=== PATIENT | female | born 1985 | race Caucasian/White ===

== ENCOUNTER 2022-08-02 01:05 | Day surgery (SDC) | payer OTHER, SELFPAY ==
[2022-07-31 09:20] VITALS: BMI 36.2
--- NOTE | 2022-07-31 09:26 | PC.NURSE ---
Report to the Outpatient Waiting Room, entrance under the green pavilion located off [facility], at time 1000 on date 08/02/22. OR Time: 1200. Time changes happen often and if your time is changed the preop area will call you the afternoon before. - You and your visitor will be asked to self-screen and do not enter if you have any COVID symptoms. - Only one visitor and NO children visitors are allowed at this time. - The patient visitor is requested to leave or wait in car when not with patient due to restrictions. - A mask is required within the hospital. Patients may have clear liquids (water, carbonated beverages, clear teas, apple juice) until 3 hours prior to surgery with a maximum of 20 ounces. - No food from midnight until time of surgery Take the following medications with a SIP of water the morning of surgery: LEXAPRO Medications to discontinue per physician: N/A Date to take last dose: N/A Please no make-up, nail setswana, hairspray, perfume, deodorant, or body powder the day of surgery. No jewelry (including any body piercings) or valuables the day of surgery, leave them at home. Please take a shower or bath the night before, or the morning of, surgery with an antibacterial soap. Wear comfortable, loose fitting clothing. - Jewelry must be removed prior to entering the operating room. Rings and piercings that are not removed may be cut off. - The hospital will not accept responsibility for valuables. - Please leave all valuables, including medications, at home the day of surgery. If you are going home after surgery, a licensed lyft driver must drive you home. - NO public transportation without another adult. - We recommend that an adult stay with you for 24 hours following discharge. - We also recommend that you do not drive, make important decision, drink alcoholic beverages, or take any drugs that were not prescribed by your health care provider for at least 24 hours after your discharge time. Follow any additional instructions given to you from your surgeon. If you or anyone in your household have experienced Covid symptoms in the past week, please notify your surgeon or the nurse liaison at the phone number below for possible testing. Telephone instructions given to PT - BARB GOVEA and asked if any additional questions and then verbalized understanding. Patient advised to call surgeon office or pre surgery nurse liaison [phone] if any additional questions.
[2022-08-02 11:54] VITALS: BP 131/68; PULSE 77; RESP 16; TEMP 36.6; O2SAT 99
--- NOTE | 2022-08-02 12:16 | PM.IMHP ---
H&P: HPI History of Present Illness Date/Time: 08/02/22 12:16 Chief Complaint: Miscarriage Narrative: 37 y/o with LMP 05/30/22, putting her at 9w2d today. She had an ultrasound exam on 07/30/22. A victor IUP with CRL only c/w 7w3d, with no cardiac activity. Review of Systems Review of Systems: All systems reviewed & are unremarkable except as noted in HPI and below PMFSH Past Medical History Medical History Anxiety and depression BMI 38.0-38.9,adult Morbid obesity Family History Family History Other Cerebrovascular accident Diabetes mellitus Family history of coronary artery disease Family history of lymphoma Family history of malignant neoplasm of urinary bladder Hypertension Social History Social History Years smoked: 6 Smoking status: Former smoker Tobacco type: cigarettes Smoking end date: 10/27/11 Alcohol intake: never Substance use: never Substance use type: does not use Living arrangements: with family Spiritual care concerns: No Meds Home Medications and Allergies Home Medications Medication Instructions Recorded Confirmed Type escitalopram oxalate 20 mg tablet 20 mg PO DAILY #90 tabs 05/22/22 07/31/22 Rx (Lexapro) trazodone 50 mg tablet See Rx Instructions .Route 06/27/22 07/31/22 Rx .COMPLEX #90 tabs Allergies Allergy/AdvReac Type Severity Reaction Status Date / Time shellfish derived Allergy Severe Anaphylactic Verified 08/02/22 12:21 Shock Iodinated Contrast Media Allergy Unknown Swelling Verified 08/02/22 12:21 White Fish Allergy Intermediate Dyspnea / Uncoded 08/02/22 12:21 SOB Exam Const: Orientation/consciousness: patient oriented x3 Other: Well-developed, well-nourished female in no acute distress. Neck: Thyroid: thyroid normal Lymphatic: no lymphadenopathy noted (in neck, axilla or inguinal nodes) Resp: Effort & Inspection: normal respiratory effort Auscultation: clear to auscultation bilaterally Cardio: Rate: regular rate Rhythm: regular rhythm Heart sounds: S1 normal heart sound present and S2 normal heart sound present GI: Other: ABD: Soft, nontender, nondistended. No guarding or rebound tenderness. No hepatosplenomegaly. : General: Yes no CVA tenderness Other: External genitalia: normal female hair distribution, without lesion. Urethral meatus: no lesion, non prolapsed. Bladder: no mass, nontender Vagina: well-estrogenized, without lesion or discharge. No cystocele or rectocele. Cervix: no lesion or discharge. Uterus: small, anteverted, freely mobile, nontender Adnexa: no mass or tenderness. Anus/perineum: no lesions, nontender Back/Spine/Pelvis: Back: no CVA tenderness Skin: General skin exam: normal color and no rashes or lesions noted Neuro: General: patient oriented x3 Extrem: Other: Extremities: nontender with no edema Psych: Mental Status: mental status grossly normal Affect: normal affect Assessment and Plan Assessment and plan (1) Spontaneous : Code(s): O03.9 - Complete or unspecified spontaneous without complication Status: Acute Assessment and Plan: A: SAB. P: Offered expectant management vs. dilation and suction curettage. She desires the latter. She understands risks of surgery to include risks of anesthesia, risks of pain, infection, bleeding, blood products, thromboembolic phenomena and damage to adjacent structures such as bowel, bladder, ureters, blood vessels and nerves. She understands all these risks and elects to proceed with surgery.
[2022-08-02] MEDS: LACTATED RINGERS 1,000 ML 30 ML IV CONT (12:24)
[2022-08-02] MEDS: ACETAMINOPHEN 500 MG TABLET 1000 MG PO (12:25)
--- NOTE | 2022-08-02 12:32 | SUR.PREOP ---
BECAUSE WE CARE PAMPHLETS GIVEN TO PT.
--- NOTE | 2022-08-02 13:11 | P.PNAN_ITS ---
Anes - Initial Pre Proc Eval Procedure: Operation Date: 08/02/22 13:30 Proposed Procedures p Suction Dilation and Curettage - Chris Mcpherson MD Date/Time: 08/02/22 13:11 Surgeon: Chris Mcpherson MD Pre Op Diagnosis: Missed Ab Patient Data Age: 37 Gender: F Height: 1.63 m Weight: 98 kg Last Vital Signs Temp 36.6 C 08/02/22 11:54 Pulse 77 08/02/22 11:54 Resp 16 08/02/22 11:54 BP 131/68 08/02/22 11:54 Pulse Ox 99 08/02/22 11:54 O2 Del Method Room Air 08/02/22 11:54 Allergies Allergy/AdvReac Type Severity Reaction Status Date / Time shellfish derived Allergy Severe Anaphylactic Verified 08/02/22 12:21 Shock Iodinated Contrast Media Allergy Unknown Swelling Verified 08/02/22 12:21 White Fish Allergy Intermediate Dyspnea / Uncoded 08/02/22 12:21 SOB Home Medications Medication Instructions Recorded Confirmed Type escitalopram oxalate 20 mg tablet 20 mg PO DAILY #90 tabs 05/22/22 08/02/22 Rx (Lexapro) trazodone 50 mg tablet See Rx Instructions .Route 06/27/22 08/02/22 Rx .COMPLEX #90 tabs Patient hx anesthesia problems: none Family hx anesthesia problems: none Results Review: All pre-operative results and documents have been reviewed as part of the pre- operative evaluation. [facility] Past Medical History Medical History Anxiety and depression BMI 38.0-38.9,adult Morbid obesity Family History Family History Other Cerebrovascular accident Diabetes mellitus Family history of coronary artery disease Family history of lymphoma Family history of malignant neoplasm of urinary bladder Hypertension Social History Social History Years smoked: 6 Smoking status: Former smoker Tobacco type: cigarettes Smoking end date: 10/27/11 Alcohol intake: never Substance use: never Substance use type: does not use Living arrangements: with family Spiritual care concerns: No Anes - Eval Final PreProcedure Day of Procedure 08/02/22 13:11 Patient weight: obese Heart: regular rate and rhythm Lungs: clear to auscultation Airway: Mallampati scale class II Neurological: alert and oriented Last oral intake: >/= 8 hours ASA classification: II Emergent: no Anesthetic plan: proceed Anesthesia type and monitoring: general GIVS and standard monitoring Results Review: All pre-operative results and documents have been reviewed as part of the pre- operative evaluation. Informed Consent: The patient's anesthetic plan and its attendant risks and benefits were discussed with the patient/family/POA. Questions were solicited and answers provided to the satisfaction of the patient/family/POA.
--- NOTE | 2022-08-02 13:53 | WPDHPUPDATE1 ---
History and Physical Update Update Date/Time: 08/02/22 13:53 History and Physical has been reviewed, including an updated exam of the patient. There are NO changes in the patient's condition. Risks, benefits, and alternatives have been discussed and questions answered. Patient agrees to proceed with procedure.
[2022-08-02] MEDS: KETOROLAC 30 MG/ML VIAL (*BKC) IV PUSH (14:03)
[2022-08-02] MEDS: LIDOCAINE HCL 1% LOCAL INJ 20 ML VIAL 10 ML INFILTRATE (14:05)
--- NOTE | 2022-08-02 14:22 | P.OP_ITS ---
Procedure Note - Detailed Date of Procedure 08/02/22 Pre-op Diagnosis Missed Ab Post-op Diagnosis Same Procedure Performed Dilation and suction curettage Surgeon Chris Mcpherson MD Anesthesia MAC and Local (1% lidocaine paracervical block) Findings POC noted Description of Procedure The patient was taken to the operating room where she was prepared and draped in the usual sterile fashion in the dorsal lithotomy position. The bladder was drained with a red rubber catheter. A sterile speculum was placed into the vagina. The anterior lip of the cervix was grasped with a single-tooth tenaculum. Ten mL of 1% lidocaine was administered in a paracervical block. The cervix was gently dilated using Hegar dilators until an 8mm dilator could be passed. The 8mm curved tip suction curette was advanced. Suction curettage was performed and products of conception were aspirated. Sharp curettage was then performed until a good uterine cry was noted. A final pass with the suction curette was made. The tenaculum was removed. Hemostasis was excellent. Spo nge, lap, needle and instrument counts were correct. The patient was taken to the recovery room in stable condition. I was present and scrubbed for the entire procedure. Implants None Estimated Blood Loss 50 Drains No Packing No Pathology Yes (Endometrial curettings) Complications None Condition Stable Disposition PACU
[2022-08-02 14:24] VITALS: BP 113/66; PULSE 81; RESP 14; O2SAT 97
[2022-08-02 15:00] VITALS: BP 122/79; PULSE 65; RESP 14; O2SAT 100
[2022-08-02] MEDS: RHO(D) IMMUNE GLOBULIN 300 MCG/2 ML SYRINGE IM (15:20)
== END 2022-08-02 15:45 | disposition home or self-care (01) ==
PROVIDERS: PCP Family Medicine; Visit Provider Obstetrics & Gynecology
PROC: (CPT 59820; principal; 2022-08-02 13:30)
DX: O03.9 Complete or unspecified spontaneous abortion without complication (principal); Z87.891 Personal history of nicotine dependence
CPT/HCPCS: 59820; 36415; 85461; 88264; 88305; 90384; A9270; J1100; J1885; J2250; J2405; J2704; J2790; J3010; J7120

== ENCOUNTER → 2023-01-02 10:15 | Outpatient (CLI) | payer OTHER, SELFPAY ==
--- NOTE | ~2023-01-02 | US_ITS ---
Abdominal Sonogram: Real-time sonographic imaging of the abdomen was performed. Clinical History: Abdominal pain Findings: The liver appears normal with no evidence of mass lesion or bile duct dilatation. Main por bronson vein demonstrates normal direction of flow. The spleen is normal in size without evidence of foca l lesion. The gallbladder is well distended, and appears normal with no evidence of gallstone or wal l thickening. The common bile duct measures 4 mm. The visualized pancreas, aorta, and IVC are unrema rkable. The right kidney measures 11.3 cm in length and the left kidney measures 11.9 cm. There is no hydronephrosis or renal calculus. Impression: Unremarkable abdominal ultrasound. Reviewed, dictated and finalized at location . SS CLERK Impression: Unremarkable abdominal ultrasound.
== END ==
PROVIDERS: PCP Family Medicine; Visit Provider Nurse Practitioner Family
DX: R10.9 Unspecified abdominal pain (principal); R19.8 Other specified symptoms and signs involving the digestive system and abdomen
CPT/HCPCS: 76700

== ENCOUNTER → 2023-02-10 13:32 | Outpatient (CLI) | payer OTHER, SELFPAY ==
--- NOTE | ~2023-02-10 | CT_ITS ---
EXAMINATION: CT abdomen pelvis w con DATE: 02/10/2023 13:53 INDICATION: Left upper quadrant pain TECHNIQUE: Computed tomography (CT) of the chest was performed with 100 cc Omnipaque 350 intravenous contrast. The dose-length product was 947.41 mGy-cm. Automated exposure control and iterative reconst ruction technique were employed. COMPARISON: None FINDINGS: Lung bases are unremarkable. Heart size normal. No significant pleural or pericardial effus ion. No significant vascular abnormality. No lymphadenopathy. The liver, spleen, pancreas, adrenal gl ands are unremarkable. Right kidney is unremarkable. There are nonobstructing left renal stones measu ring 4 mm or less. No definite ureteral stones or hydronephrosis. There are pelvic phleboliths. There are follicular changes of the right ovary with trace free fluid in the pelvis. Small fat-containing umbilical hernia. Normal appendix. No significant bone or joint abnormality. IMPRESSION: 1. No acute abdominal abnormality. 2: Nonobstructing left nephrolithiasis. Reviewed, dictated and finalized at location A.
== END ==
PROVIDERS: PCP Family Medicine; Visit Provider Nurse Practitioner
DX: N20.0 Calculus of kidney (principal); R19.8 Other specified symptoms and signs involving the digestive system and abdomen; Z68.35 Body mass index [BMI] 35.0-35.9, adult
CPT/HCPCS: 74177; Q9967

== ENCOUNTER 2023-03-21 03:31 | Day surgery (SDC) | payer OTHER, SELFPAY ==
[2023-03-06 14:20] VITALS: BMI 37.8
--- NOTE | 2023-03-21 07:26 | PM.HPGS ---
History of Present Illness History of Present Illness Consent: Risks, benefits, and alternatives have been discussed and questions answered. Patient agrees to proceed with procedure. Chief complaint: symptoms and signs involving the digestive system Narrative: Anum Norris is a 38 year old female Who ?reports alternating bowel habits between constipation and diarrhea were she will not have a bowel movement for 3-4 days and then she can have up to 3-4 loose bowel movements in 1 day. there is a family history of Crohn's disease. She also has had some abdominal pains, Primarily in the left upper quadrant, 45 minutes after meal. 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 Sibling No problems noted. Other Cerebrovascular accident Diabetes mellitus Family history of coronary artery disease Family history of lymphoma Family history of malignant neoplasm of urinary bladder Hypertension Social History Social History Years smoked: 8 Smoking status: Former smoker Tobacco type: cigarettes Second hand tobacco smoke exposure: No Smoking end date: 10/27/11 Alcohol intake: never Substance use: never Substance use type: does not use Lack of Transportation: No Lack of Food: Never True Current Housing: I Have Housing Concerned About Future Housing: No Difficulty Paying Gas/Electric Bills: No Difficulty Paying for Meds: No Currently Unemployed: No Education: Bachelor's Degree Difficulty w/ Childcare or Family Care: No Living arrangements: with family Occupation/Education: occupation 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 Gender identity (if verbalized by the patient): Female Spiritual care concerns: No Meds Home Medications and Allergies Home Medications Medication Instructions Recorded Confirmed Type escitalopram oxalate 20 mg tablet 20 mg PO DAILY #90 tabs 11/18/22 03/06/23 Rx (Lexapro) trazodone 50 mg tablet See Rx Instructions .Route 12/25/22 03/06/23 Rx .COMPLEX #90 tabs dicyclomine 20 mg tablet See Rx Instructions .Route 02/07/23 03/06/23 Rx .COMPLEX #120 tabs Allergies Allergy/AdvReac Type Severity Reaction Status Date / Time shellfish derived Allergy Severe Anaphylactic Verified 03/21/23 09:14 Shock White Fish Allergy Severe Dyspnea / Uncoded 03/21/23 09:14 SOB Exam Const: General: alert Orientation/consciousness: patient oriented x3 Resp: Auscultation: clear to auscultation bilaterally Cardio: Rhythm: regular rhythm GI: GI Palp: Yes Soft to palpation and No Tenderness to palpation present (GI) Neuro: General: patient oriented x3 Assessment and Plan Assessment and plan (1) Alternating constipation and diarrhea: Code(s): R19.8 - Other specified symptoms and signs involving the digestive system and abdomen Status: Acute Assessment and Plan: Colonoscopy with possible biopsy or polypectomy or cautery or injection of substances.
[2023-03-21 09:15] VITALS: BP 145/79; PULSE 80; RESP 19; TEMP 36.3; O2SAT 100
[2023-03-21] MEDS: LACTATED RINGERS 1,000 ML 150 ML IV CONT (09:25)
--- NOTE | 2023-03-21 10:01 | WPDANESEPPF ---
Anes - Initial Pre Proc Eval Procedure: Operation Date: 03/21/23 10:30 Proposed Procedures p Colonoscopy - Lukasz Hood MD Date/Time: 03/21/23 10:01 Surgeon: Lukasz Hood MD Pre Op Diagnosis: symptoms and signs involving the digestive system Patient Data Age: 38 Gender: F Height: 1.63 m Weight: 102 kg Last Vital Signs Temp 97.3 F L 03/21/23 09:15 Pulse 80 03/21/23 09:15 Resp 19 03/21/23 09:15 BP 145/79 H 03/21/23 09:15 Pulse Ox 100 03/21/23 09:15 O2 Del Method Room Air 03/21/23 09:15 Allergies Allergy/AdvReac Type Severity Reaction Status Date / Time shellfish derived Allergy Severe Anaphylactic Verified 03/21/23 09:14 Shock White Fish Allergy Severe Dyspnea / Uncoded 03/21/23 09:14 SOB Home Medications Medication Instructions Recorded Confirmed Type escitalopram oxalate 20 mg tablet 20 mg PO DAILY #90 tabs 11/18/22 03/06/23 Rx (Lexapro) trazodone 50 mg tablet See Rx Instructions .Route 12/25/22 03/06/23 Rx .COMPLEX #90 tabs dicyclomine 20 mg tablet See Rx Instructions .Route 02/07/23 03/06/23 Rx .COMPLEX #120 tabs Patient hx anesthesia problems: none Family hx anesthesia problems: none Results Review: All pre-operative results and documents have been reviewed as part of the pre-operative evaluation. 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 Sibling No problems noted. Other Cerebrovascular accident Diabetes mellitus Family history of coronary artery disease Family history of lymphoma Family history of malignant neoplasm of urinary bladder Hypertension Social History Social History Years smoked: 8 Smoking status: Former smoker Tobacco type: cigarettes Second hand tobacco smoke exposure: No Smoking end date: 10/27/11 Alcohol intake: never Substance use: never Substance use type: does not use Lack of Transportation: No Lack of Food: Never True Current Housing: I Have Housing Concerned About Future Housing: No Difficulty Paying Gas/Electric Bills: No Difficulty Paying for Meds: No Currently Unemployed: No Education: Bachelor's Degree Difficulty w/ Childcare or Family Care: No Living arrangements: with family Occupation/Education: occupation 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 Gender identity (if verbalized by the patient): Female Spiritual care concerns: No Anes - Eval Final PreProcedure Day of Procedure 03/21/23 10:01 Patient weight: obese Heart: regular rate and rhythm Lungs: clear to auscultation Airway: Mallampati scale class II Neurological: alert and oriented Last oral intake: >/= 8 hours ASA classification: II Emergent: no Anesthetic plan: proceed Anesthesia type and monitoring: general GIVS and standard monitoring Results Review: All pre-operative results and documents have been reviewed as part of the pre-operative evaluation. Informed Consent: The patient's anesthetic plan and its attendant risks and benefits were discussed with the patient/family/POA. Questions were solicited and answers provided to the satisfaction of the patient/family/POA.
[2023-03-21 10:37] VITALS: BP 105/62; PULSE 71; RESP 17; O2SAT 100
[2023-03-21 10:47] VITALS: BP 120/86; PULSE 74; RESP 18; O2SAT 100
[2023-03-21 10:57] VITALS: BP 125/86; PULSE 76; RESP 18; O2SAT 100
== END 2023-03-21 11:02 | disposition home or self-care (01) ==
PROVIDERS: PCP Family Medicine; Visit Provider Internal Medicine Gastroenterology
PROC: 0DJD8ZZ Inspection of Lower Intestinal Tract, Via Natural or Artificial Opening Endoscopic (ICD-10-PCS; CPT 45378; principal; 2023-03-21 10:30)
DX: R19.7 Diarrhea, unspecified (principal); K59.00 Constipation, unspecified; F41.8 Other specified anxiety disorders; Z87.891 Personal history of nicotine dependence; E66.9 Obesity, unspecified; Z68.38 Body mass index [BMI] 38.0-38.9, adult; Z83.79 Family history of other diseases of the digestive system
CPT/HCPCS: 45378; J2001; J2704; J7120

== ENCOUNTER 2023-05-08 09:53 | Outpatient (CLI) | payer OTHER, SELFPAY ==
--- NOTE | ~2023-05-08 | NM_ITS ---
EXAMINATION: NM hepatobiliary wo pharm DATE: 05/08/2023 12:30 INDICATION: Postprandial epigastric and left upper quadrant abdominal pain COMPARISON: None. TECHNIQUE: 4.9 mCi Tc-99m mebrofenin (Choletec) was administered intravenously. Scintigraphic images of the abdomen were obtained for one hour. At the 1 hour time point, the patient drank 8 oz Ensure, and imaging was continued for 60 minutes. Gallbladder ejection fraction was calculated by the technol ogist. FINDINGS: There is normal clearance of radiotracer from the blood pool. There is homogeneous tracer u ptake by the liver. Activity progresses to the bowel and gallbladder. The gallbladder ejection fract ion (GBEF) is 89%. Note that with this technique, normal GBEF >= 33%. IMPRESSION: 1. Normal hepatobiliary scan. Reviewed, dictated and finalized at location A.
== END 2023-05-08 09:54 | disposition home or self-care (01) ==
PROVIDERS: PCP Family Medicine; Visit Provider Nurse Practitioner
DX: R10.12 Left upper quadrant pain (principal)
CPT/HCPCS: 78226; A9537

== ENCOUNTER 2025-01-27 10:44 | Outpatient (CLI) | payer OTHER, SELFPAY ==
--- OUTSIDE RECORDS SUMMARY | 2025-01-27 11:33 | XMS_ITS | Clinical Summary ---
Author Organization [facility] Address [address] [place] [address] Care Team Providers Care Ladies' Locker Room Attendant Name Role Phone Basil Altman MD Primary Care Provider [phone] Source Comments [facility],non-owned Affiliates and Associated Physician Practices is amultiple site organization consisting of ambulatory clinics and hospital sitesin [place], [place], [place] and [place]. This disclosure is being madepursuant to the Care Everywhere program and may not contain all information available regarding this patient. Last updated 18.Taomee [facility] Active Problems Patient Care Coordination No te Formatting of this note migh t be different from the original. 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 Resolved Problems Problem Noted Date Diagnosed Date Resolved Date 22 weeks gestation of 06/07/2019 Immunizations Name Administration Dates Next Due Rho D Immune Globulin 04/13/2019 Social History Tobacco Use Types Packs/Day Years Used Date Smoking Tobacco: Never Assessed Sex and Gender Information Value Date Recorded Sex Assigned at Female 09/02/2022 11:23 AM [employer]ER [employer] Gender Identity Female 09/02/2022 11:23 AM [employer] Sexual Orientation Not on file Last Filed Vital Signs Vital Sign Reading Time Taken Comments Blood Pressure 123/63 06/14/2019 3:14 PM CDT Pulse 74 06/14/2019 3:14 PM CDT Temperature - - Respiratory Rate 18 06/14/2019 3:14 PM CDT Oxygen Saturation - - Inhaled Oxygen Concentration - - Weight - - Height - - Body Mass Index - - Plan of Treatment Health Maintenance Due Date Last Done Comments PAP SMEAR 1987 HIV SCREENING 2002 HEPATITIS C SCREENING 02/16/2005 DTAP/TDAP/TD VACCINES (1 - Tdap) 2006 HEPATITIS B VACCINE (1 of 3 - 19+ 3-dose series) 2006 COVID-19 VACCINE (3 - 2023-2 5 season) 2024 11/23/2020, 11/02/2020 INFLUENZA VACCINE (#1) 2024 08/02/2019 DEPRESSION SCREENING 10/27/2024 ZOSTER VACCINE (1 of 2) 2037 HIB VACCINE Aged Out No longer eligi ble based on patient's age to complete this topic HPV VACCINE Aged Out No longer eligi ble based on patient's age to complete this topic MENINGOCOCCAL (Group B) VACCINE SHARED DECISION-MAKING Aged Out No longer eligible based on patient's age to complete this topic MENINGOCOCCAL GROUPS A/C/Y/W VACCINE Aged Out No longer eligible b ased on patient's age to complete this topic PNEUMOCOCCAL VACCINE Aged Out No long er eligible based on patient's age to complete this topic Care Teams Ladies' Locker Room Attendant Relationship Specialty Start Date End Date Basil Altman MD [address] [place] [address] PCP - General 04/13/19
== END 2025-01-27 10:45 | disposition home or self-care (01) ==
PROVIDERS: PCP Family Medicine; Visit Provider Nurse Practitioner Family
DX: R00.2 Palpitations (principal); Z82.49 Family history of ischemic heart disease and other diseases of the circulatory system
CPT/HCPCS: 93242

== ENCOUNTER 2025-04-20 07:52 | Outpatient (CLI) | payer OTHER, SELFPAY ==
[2025-04-27 15:34] VITALS: BMI 37.8
--- NOTE | 2025-04-27 15:34 | WPDHOMESLEEP ---
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 The patient admits to snoring loudly, excessive daytime sleepiness and trouble maintaining sleep. She denies interruptions in breathing while asleep. She denies choking or gasping at night. She denies having trouble breathing on her back. She denies morning headaches. She denies having a dry or sore mouth / throat in the morning. She denies nocturnal heartburn. She denies nocturia. She denies having difficulty falling asleep. She denies having difficulty returning to sleep if she wakes up throughout the night. She does use hypnotics or sedatives. She denies feeling anxious about sleep. She does feel tired or sleepy during the day. She does feel tired in the morning. She does have the urge to fall asleep during the day. She denies feeling drowsy while driving. She denies sleep paralysis, cataplexy and hypnagogic/ hypnopompic hallucinations. She does clench or grind her teeth. She denies kicking or jerking her legs excessively. She does have a restless feeling in her legs that does cause an urge to move her legs. The restless feeling gets worse with rest and better with activity. The restless feeling mainly occurs in the evening or at night time and it does cause distress. She goes to bed at 9:00 p.m. every night. It takes her 1 hour to fall asleep on work days and 30 minutes on her days off. She gets 8 hours of sleep on work days and 9-1/2 hours on her days off. Her sleep is not at all restorative on her days off. She denies taking any planned naps. She denies dream enactment behavior. She denies sleep walking. She consumes 3-4 cups of caffeinated beverage per day. She denies tobacco use. She consumes 2 alcoholic beverages 1-2 nights per week. She denies exercising on a regular basis. 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 Other Cerebrovascular accident Diabetes mellitus Family history of coronary artery disease Family history of lymphoma Family history of malignant neoplasm of urinary bladder Social History Social History Years smoked: 8 Smoking status: Former smoker Tobacco type: cigarettes Second hand tobacco smoke exposure: No Smoking end date: 10/27/11 Alcohol intake: current Substance use: never Substance use type: does not use Lack of Transportation: No Lack of Food: Never True Current Housing: I Have Housing Concerned About Future Housing: No Difficulty Paying Gas/Electric Bills: No Difficulty Paying for Meds: No Currently Unemployed: No Education: Bachelor's Degree Difficulty w/ Childcare or Family Care: No Living arrangements: with family Occupation/Education: occupation 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 Gender identity (if verbalized by the patient): Female Spiritual care concerns: No Medications Home Medications ?Medication ?Instructions ?Recorded ?Confirmed ?Type duloxetine 60 mg capsule,delayed 60 mg PO DAILY #90 caps 09/08/24 03/09/25 Rx release (Cymbalta) trazodone 50 mg tablet See Rx Instructions .Route 03/02/25 03/09/25 Rx .COMPLEX #180 tabs Sleep Procedure The sleep study was completed using TessellaT a technically adequate device with seven channels: peripheral arterial tone, actigraphy, body position, snore, respiratory movement, pulse oximetry, sleep staging, and heart rate. Prior to using the device, the patient received verbal and written instructions for its application and was provided with the help desk phone number for additional telephonic instruction with 24-hour availability of qualified personnel to answer questions. The study was scored using CMS guidelines. Sleep Architecture The total recording time is 8 hrs, 32 min. The total sleep time is 7 hrs, 36 min. Sleep latency is 6 minutes. REM latency is 164 minutes. The patient had 15 episodes of waking. Sleep architecture shows 8.9% deep sleep, 76.0% light sleep, and (as % Total Sleep Time) showed NREM (Light 76.0%; Deep 8.9%), and a 15.1% stage REM. The patient spent 13.3% of total sleep time in the supine position. Sleep efficiency was 89.06. Respiratory Analysis The overall AHI (pAHI 4%:) is 0.5. The overall AHI (pAHI 3%:) is 2.6. The central AHI is 0.0. The AHI was 2.0 in NREM and 6.1 in REM sleep. The AHI was 5.0 in Supine and 2.3 in Non-supine sleep. Percent of Robert Kamara respirations is 0.0. Oximetry Data The oxygen desaturation index (AZUL 4%:) is 0.5. The mean saturation is 95%, and the lowest saturation is 92%. Time spent with saturation < 88% is 0.0 minutes. Snoring Profile Snoring average intensity is 43 dB. The patient snored above 45 decibels for 45.4 minutes, 10.0% of sleep time. Cardiac Profile The average pulse rate is 68 beats per minutes. The lowest pulse rate is 51 bpm. The highest pulse rate reported is 98 bpm. Atrial fibrillation was not detected. Premature beats occur <0.1 per minute. Assessment and Plan Assessment and Plan (1) Sleep disturbances: Code(s): G47.9 - Sleep disorder, unspecified Status: Acute Assessment and Plan: The patient had an overall AHI of 0.5 with desaturation down to 92%. This is not consistent with sleep-disordered breathing. The patient's sleep history is suggestive of Restless Leg Syndrome. I recommend that the patient have a serum ferritin drawn for evaluation of iron deficiency anemia. If the patient has a serum ferritin less than 75 ng/mL, I recommend starting a daily iron supplement and a Vitamin C supplement for better absorption. If the serum ferritin is greater than 75 ng/mL, I recommend starting a dopamine agonist and titrating the dose until symptoms resolve. There are nonpharmacological methods to treat limb movements including daily exercise, stretching calf muscles before bed, avoiding excessive amounts of caffeine and alcohol, vitamin B supplementation, magnesium lotion massaged into legs before bed, and use of a weighted blanket. Data The data obtained during this sleep study is adequate for interpretation. Certification This sleep study has been reviewed by a board certified sleep medicine physician.
== END 2025-04-21 11:37 | disposition home or self-care (01) ==
LOC: ANHCSM 07:53
PROVIDERS: PCP Family Medicine; Visit Provider Internal Medicine Cardiovascular Disease
DX: G47.10 Hypersomnia, unspecified (principal); G47.9 Sleep disorder, unspecified
CPT/HCPCS: 95800